=== PATIENT | male | born 1990 | race African-American/Black ===

== ENCOUNTER 2018-01-21 14:25 | Emergency (ER) | payer SELFPAY ==
--- NOTE | 2018-01-21 15:50 | ER Document Report ---
ED Medical Screen (RME) - General Chief Complaint: Abdominal Pain Stated Complaint: VOMITING,DIARRHEA Time Seen by Provider: 01/21/18 15:22 Mode of Arrival: Ambulatory Information source: Patient TRAVEL OUTSIDE OF THE [place] IN LAST 30 DAYS: No - HPI Notes: RAPID MEDICAL EVALUATION DISCLOSURE I have seen this patient as part of a Rapid Medical Evaluation and, if applicable, placed any initially appropriate orders. The patient will be seen and fully evaluated, including a full history and physical exam, by a provider ( in Main ED or Fast Track) when a room becomes available. 01/21/18 15:49 Patient states he has abdominal pain that is diffuse in nature. He states he has had nausea vomiting and diarrhea for the past few weeks with associated 40 pound weight loss in the last 3 months. He has a history of PTSD and bipolar disorder and is supposed to be on medications including trazodone but states he has not been taking them "for a while". Patient has been here in the past however he is registered under a different birthdate today and so his past medical history is in a different chart. Registration states are unable to emergency charts at this time because patient does not have a valid ID with him. - Related Data Allergies/Adverse Reactions: No Known Allergies Allergy (Unverified 01/21/18 14:26) Past Medical History - Social History Frequency of alcohol use: None Drug Abuse: Marijuana - Past Medical History Cardiac Medical History: Reports: Hx Hypertension - htn Renal/ Medical History: Denies: Hx Peritoneal Dialysis Past Surgical History: Reports: Hx Orthopedic Surgery - spinal surgery Physical Exam - Vital signs Vitals: Temp Pulse Resp BP Pulse Ox 98.4 F 84 16 140/81 H 97 01/21/18 14:31 01/21/18 14:31 01/21/18 14:31 01/21/18 14:31 01/21/18 14:31 Course - Vital Signs Vital signs: Temp Pulse Resp BP Pulse Ox 98.4 F 84 16 140/81 H 97 01/21/18 14:31 01/21/18 14:31 01/21/18 14:31 01/21/18 14:31 01/21/18 14:31
[2018-01-21] MEDS ORDERED: ONDANSETRON HCL INJ/PF 4 MG/2 ML SDV IV ONE (16:25)
[2018-01-21] MEDS ORDERED: KETOROLAC TROMETHAMINE INJ/PF 30 MG/1 ML SDV IV ONE (16:25)
[2018-01-21 16:29] LABS: ABSOLUTE EOSINOPHILS # (AUTO) 0.1 10^3/uL (0.0-0.6); ABSOLUTE LYMPHOCYTES (AUTO) 2.6 10^3/uL (0.5-4.7); ABSOLUTE MONOCYTES (AUTO) 0.8 10^3/uL (0.1-1.4); ABSOLUTE NEUT (AUTO) 5.3 10^3/uL (1.7-8.2); BASOPHILS % (AUTO) 0.3 % (0-2); HEMATOCRIT 42.9 % (37.9-51.0); HEMOGLOBIN 14.9 g/dL (13.5-17.0); LYMPHOCYTES % (AUTO) 29.4 % (13-45); MEAN CORPUSCULAR HEMOGLOBIN 29.9 pg (27.0-33.4); MEAN CORPUSCULAR HGB CONC 34.8 g/dL (32.0-36.0); MEAN CORPUSCULAR VOLUME 86 fl (80-97); MONOCYTES % (AUTO) 9.2 % (3-13); PLATELET COUNT 220 10^3/uL (150-450); RED BLOOD COUNT 4.99 10^6/uL (4.35-5.55); RED CELL DISTRIBUTION WIDTH 14.6 % (11.5-14.0); SEGMENTED NEUTROPHILS % (AUTO) 60.1 % (42-78); TOTAL CELLS COUNTED % (AUTO) 100 %; WHITE BLOOD COUNT 8.8 10^3/uL (4.0-10.5)
--- NOTE | 2018-01-21 16:30 | ER Document Report ---
ED General - General Chief Complaint: Abdominal Pain Stated Complaint: VOMITING,DIARRHEA Time Seen by Provider: 01/21/18 15:22 Mode of Arrival: Ambulatory TRAVEL OUTSIDE OF THE [place] IN LAST 30 DAYS: No - HPI Notes: Patient is a 27-year-old male with a history of bipolar and PTSD, currently unmedicated, who presents to the ED complaining of right side greater than left side abdominal pain, nausea, vomiting, diarrhea 6 weeks. Patient states that symptoms occur daily and his pain is always there. He is still able to eat and drink, but food will make his symptoms worse. He is urinating normally. He has not noticed any hematochezia or melena. The pain does not radiate. Nothing has seemed to improve his pain. He has not been seen for this issue in the past. Denies any drug allergies, smoking, IV drug use. Denies any antibiotics prior to the start of symptoms. No other recent travel. Denies any headache, fever, neck pain, URI, sore throat, chest pain, palpitations, syncope, cough, shortness of breath, wheeze, dyspnea, urinary retention, dysuria , hematuria, back pain, loss of control of bowel or bladder, numbness/tingling, muscle paralysis/weakness, or rash. - Related Data Allergies/Adverse Reactions: No Known Allergies Allergy (Unverified 01/21/18 14:26) Past Medical History - General Information source: Patient - Social History Smoking Status: Unknown if Ever Smoked Frequency of alcohol use: None Drug Abuse: Marijuana Family History: Reviewed & Not Pertinent Patient has suicidal ideation: No Patient has homicidal ideation: No - Past Medical History Cardiac Medical History: Reports: Hx Hypertension - htn Renal/ Medical History: Denies: Hx Peritoneal Dialysis Past Surgical History: Reports: Hx Orthopedic Surgery - spinal surgery Review of Systems - Review of Systems -: Yes All other systems reviewed and negative Physical Exam - Vital signs Vitals: Temp Pulse Resp BP Pulse Ox 98.4 F 84 16 140/81 H 97 01/21/18 14:31 01/21/18 14:31 01/21/18 14:31 01/21/18 14:31 01/21/18 14:31 - Notes Notes: PHYSICAL EXAMINATION: GENERAL: Well-appearing, well-nourished and in no acute distress. HEAD: Atraumatic, normocephalic. EYES: Pupils equal round and reactive to light, extraocular movements intact, sclera anicteric, conjunctiva are normal. ENT: Nares patent and without discharge. oropharynx clear without exudates. No tonsilar hypertrophy or erythema. Moist mucous membranes. NECK: Normal range of motion, supple without lymphadenopathy LUNGS: Breath sounds clear to auscultation bilaterally and equal. No wheezes rales or rhonchi. HEART: Regular rate and rhythm without murmurs, rubs, gallops. ABDOMEN: Soft, nondistended abdomen. No guarding, no rebound. No masses appreciated. Normal bowel sounds present. No CVA tenderness bilaterally. + tenderness to the RLQ>LLQ to palp. + mild tenderness to the epigastrum. pierre negative. Musculoskeletal: FROM to passive/active. Strength 5+/5. Extremities: No cyanosis, clubbing, or edema b/l. Peripheral pulses 2+. Capillary refill less than 3 seconds. NEUROLOGICAL: Normal speech, normal gait. Normal sensory, motor exams PSYCH: Normal mood, normal affect. SKIN: Warm, Dry, normal turgor, no rashes or lesions noted. Course - Re-evaluation Re-evalutation: 01/21/18 18:37 Patient is an afebrile, well-hydrated, 27-year-old male who presents to the ED with n/v/d & lower abdominal pain unspecified. Vitals are acceptable. PE is otherwise unremarkable. Patient has no significant tachycardia, tachypnea, or hypoxia. He is able to tolerate p.o. at this time. CBC, CMP, lipase, urinalysis were unremarkable for any acute pathology. Stool testing still pending. CT scan of the abdomen/pelvis was unremarkable for any acute pathology. Low suspicion/risk for acute appendicitis, bowel obstruction, acute cholecystitis, perforated diverticulitis, incarcerated hernia, pancreatitis, perforated ulcer, peritonitis, sepsis, or other systemic emergent condition at this time. Patient is aware that his condition can change from initial presentation and he needs to monitor symptoms closely and seek medical attention if any acute changes. I will send him home with Mark. Conservative measures otherwise for symptoms. Recheck with PCM in 2-3 days. Consider consult with a merchandise deliverer. Return to the ED with any worsening /concerning symptoms otherwise as reviewed in discharge. Patient is in agreement. - Vital Signs Vital signs: Temp Pulse Resp BP Pulse Ox 98.4 F 84 16 140/81 H 97 01/21/18 14:31 01/21/18 14:31 01/21/18 14:31 01/21/18 14:31 01/21/18 14:31 - Laboratory Result Diagrams: 01/21/18 16:10 01/21/18 16:10 Laboratory results interpreted by me: 01/21/18 01/21/18 16:10 16:10 RDW 14.6 H Sodium 146.6 H Calcium 10.3 H Discharge - Discharge Clinical Impression: Nausea vomiting and diarrhea Condition: Stable Disposition: HOME, SELF-CARE Instructions: Abdominal Pain ([facility]), Prescribed Antidiarrhea Medications ([facility]), Antinausea Medication ([facility]) Additional Instructions: Maintain adequate fluid and food intake Otero diet (B.R.A.T.) Bananas, rice, apples, toast, etc Zofran as needed tylenol if needed Monitor for any worsening symptoms Make sure you are staying hydrated enough to urinate and have normal BM's Recheck with your PCM in 2-3 days Schedule a consult with Gastroenterology as you may need an endoscopy/ colonoscopy performed Return to the ED with any worsening symptoms and/or development of fever, headache, chest pain, palpitations, syncope, shortness of breath, trouble breathing, abdominal pain, n/v/d, blood in stool/urine, weakness, or other worsening symptoms that are concerning to you. Prescriptions: Loperamide HCl [Imodium 2 mg Capsule] 2 mg PO PRN PRN #21 cap PRN Reason: Ondansetron [Zofran Odt 4 mg Tablet] 1 - 2 tab PO Q4H PRN #15 tab.rapdis PRN Reason: For Nausea/Vomiting Forms: Elevated Blood Pressure Referrals: RADHIKA FOWLER MD [ACTIVE STAFF] - Follow up as needed KIKA MIRANDA MD [ACTIVE STAFF] - Follow up as needed
[2018-01-21 16:55] LABS: ALANINE AMINOTRANSFERASE 22 U/L (21-72); ALBUMIN 4.9 g/dL (3.5-5.0); ALKALINE PHOSPHATASE 66 U/L (38-126); ANION GAP 13 (5-19); ASPARTATE AMINO TRANSFERASE 23 U/L (17-59); BILIRUBIN,DIRECT 0.3 mg/dL (0.0-0.4); BILIRUBIN,TOTAL 0.5 mg/dL (0.2-1.3); BLOOD UREA NITROGEN 19 mg/dL (7-20); CALCIUM 10.3 mg/dL (8.4-10.2); CARBON DIOXIDE 29 mmol/L (22-30); CHLORIDE 105 mmol/L (98-107); GLUCOSE 78 mg/dL (75-110); SODIUM 146.6 mmol/L (137-145); TOTAL PROTEIN 8.1 g/dL (6.3-8.2)
--- NOTE | 2018-01-21 18:19 | RADIOLOGY REPORT (SQ) ---
EXAM DESCRIPTION: CT ABD/PELVIS WITH IV ONLY COMPLETED DATE/TIME: 01/21/2018 5:45 pm REASON FOR STUDY: abd pain COMPARISON: None. TECHNIQUE: CT scan of the abdomen and pelvis performed using helical scanning technique with dynamic intravenous contrast injection. No oral contrast. Images reviewed with lung, soft tissue, and bone windows. Reconstructed coronal and sagittal MPR images reviewed. Delayed images for evaluation of the urinary system also acquired. All images stored on PACS. All CT scanners at this facility use dose modulation, iterative reconstruction, and/or weight based d osing when appropriate to reduce radiation dose to as low as reasonably achievable (ALARA). [facility]: Dose Right [facility]: CareDose [facility]: Dose Right [facility]: Teradose 4D [facility]: Afrimarket CONTRAST TYPE AND DOSE: 94 cc Isovue 370- low osmolar. RENAL FUNCTION: None required. The patient is less than 50 years old. RADIATION DOSE: . LIMITATIONS: None. FINDINGS: LOWER CHEST: No significant findings. No nodules or infiltrates. LIVER: Normal size. No masses. No dilated ducts. SPLEEN: Normal size. No focal lesions. PANCREAS: No masses. No significant calcifications. No adjacent inflammation or peripancreatic fluid collections. Pancreatic duct not dilated. GALLBLADDER: No identified stones by CT criteria. No inflammatory changes to suggest cholecystitis. ADRENAL GLANDS: No significant masses or asymmetry. RIGHT KIDNEY AND URETER: No solid masses. No significant calcifications. No hydronephrosis or hyd roureter. LEFT KIDNEY AND URETER: No solid masses. No significant calcifications. No hydronephrosis or hydr oureter. AORTA AND VESSELS: No aneurysm. No dissection. Renal arteries, SMA, celiac without stenosis. RETROPERITONEUM: No retroperitoneal adenopathy, hemorrhage or masses. BOWEL AND PERITONEAL CAVITY: No masses or inflammatory changes. No free fluid or peritoneal masses. APPENDIX: Not identified. PELVIS: No mass. No free fluid. Normal bladder. ABDOMINAL WALL: No masses. No hernias. BONES: No significant or acute findings. OTHER: No other significant finding. IMPRESSION: NO SIGNIFICANT OR ACUTE FINDING IN THE ABDOMEN OR PELVIS ON CT SCAN WITH IV CONTRAST. TECHNICAL DOCUMENTATION: JOB ID: [id number] Quality ID # [id number]: Final reports with documentation of one or more dose reduction techniques (e.g., Au tomated exposure control, adjustment of the mA and/or kV according to patient size, use of iterative reconstruction technique) 2010 [employer]- All Rights Reserved Reading location - IP/workstation name: [email or web address]
[2018-01-21 18:44] LABS: APPEARANCE,URINE CLEAR; BILIRUBIN,URINE NEGATIVE (NEGATIVE); COLOR,URINE YELLOW; GLUCOSE, URINE NEGATIVE (NEGATIVE); KETONES,URINE NEGATIVE (NEGATIVE); LEUKOCYTE ESTERASE,URINE NEGATIVE (NEGATIVE); NITRITE,URINE NEGATIVE (NEGATIVE); PROTEIN,URINE NEGATIVE (NEGATIVE); URINE SPECIFIC GRAVITY 1.024; UROBILINOGEN,URINE NEGATIVE mg/dL (<2.0)
[2018-01-21 19:13] VITALS: BP 152/89
== END 2018-01-21 19:12 | disposition home or self-care (01) ==
LOC: ER 14:25
DX: R11.2 Nausea with vomiting, unspecified (principal); R19.7 Diarrhea, unspecified; R10.30 Lower abdominal pain, unspecified; R10.816 Epigastric abdominal tenderness; R10.813 Right lower quadrant abdominal tenderness; R10.814 Left lower quadrant abdominal tenderness; F12.10 Cannabis abuse, uncomplicated; I10 Essential (primary) hypertension
CPT/HCPCS: 99284; 96374; 96375; 36415; 83690; 85025; 80053; 81001; 74177; J1885; J2405

== ENCOUNTER 2018-02-15 17:25 | Emergency (ER) | payer SELFPAY ==
[2018-02-15] MEDS ORDERED: ONDANSETRON 4 MG TAB.RAPDIS PO ONE (17:56)
[2018-02-15] MEDS ORDERED: ACETAMINOPHEN 325 MG TABLET PO ONE (17:56)
--- NOTE | 2018-02-15 17:59 | ER Document Report ---
ED Medical Screen (RME) - General Chief Complaint: Abdominal Pain Stated Complaint: ABDOMINAL PAIN Time Seen by Provider: 02/15/18 17:51 Notes: RAPID MEDICAL EVALUATION DISCLOSURE I have seen this patient as part of a Rapid Medical Evaluation and, if applicable, placed any initially appropriate orders. The patient will be seen and fully evaluated, including a full history and physical exam, by a provider ( in Main ED or Fast Track) when a room becomes available. 27-year-old male PMH C. difficile recently finished antibiotics for same here with complaints of continued lower abdominal pain nausea vomiting and diarrhea. He states that he was diagnosed at his last ED visit and prescribed antibiotics which he took 3 times daily but does not remember the name of it. He denies using any antibiotics prior to the onset of his symptoms the first time. EXAM Mild lower quadrant TTP No peritoneal signs TRAVEL OUTSIDE OF THE [place] IN LAST 30 DAYS: No - Related Data Allergies/Adverse Reactions: No Known Allergies Allergy (Verified 02/15/18 17:55) Past Medical History - Social History Frequency of alcohol use: None Drug Abuse: Marijuana - Past Medical History Cardiac Medical History: Reports: Hx Hypertension - htn Renal/ Medical History: Denies: Hx Peritoneal Dialysis Past Surgical History: Reports: Hx Orthopedic Surgery - spinal surgery Physical Exam - Vital signs Vitals: Temp Pulse Resp BP Pulse Ox 98.8 F 94 18 126/86 H 95 02/15/18 17:36 02/15/18 17:36 02/15/18 17:36 02/15/18 17:36 02/15/18 17:36 Course - Vital Signs Vital signs: Temp Pulse Resp BP Pulse Ox 98.8 F 94 18 126/86 H 95 02/15/18 17:36 02/15/18 17:36 02/15/18 17:36 02/15/18 17:36 02/15/18 17:36 Doctor's Discharge - Discharge Referrals: JOHN PARNELL PA-C [Primary Care Provider] - Follow up as needed
[2018-02-15 18:26] LABS: ABSOLUTE EOSINOPHILS # (AUTO) 0.1 10^3/uL (0.0-0.6); ABSOLUTE LYMPHOCYTES (AUTO) 2.8 10^3/uL (0.5-4.7); ABSOLUTE MONOCYTES (AUTO) 0.7 10^3/uL (0.1-1.4); ABSOLUTE NEUT (AUTO) 4.5 10^3/uL (1.7-8.2); BASOPHILS % (AUTO) 0.4 % (0-2); EOSINOPHILS % (AUTO) 1.1 % (0-6); HEMATOCRIT 44.3 % (37.9-51.0); HEMOGLOBIN 15.8 g/dL (13.5-17.0); LYMPHOCYTES % (AUTO) 34.2 % (13-45); MEAN CORPUSCULAR HEMOGLOBIN 30.4 pg (27.0-33.4); MEAN CORPUSCULAR HGB CONC 35.6 g/dL (32.0-36.0); MEAN CORPUSCULAR VOLUME 85 fl (80-97); MONOCYTES % (AUTO) 8.8 % (3-13); PLATELET COUNT 256 10^3/uL (150-450); RED BLOOD COUNT 5.19 10^6/uL (4.35-5.55); RED CELL DISTRIBUTION WIDTH 14.4 % (11.5-14.0); SEGMENTED NEUTROPHILS % (AUTO) 55.5 % (42-78); TOTAL CELLS COUNTED % (AUTO) 100 %; WHITE BLOOD COUNT 8.1 10^3/uL (4.0-10.5)
[2018-02-15 18:33] LABS: APPEARANCE,URINE CLEAR; BILIRUBIN,URINE NEGATIVE (NEGATIVE); COLOR,URINE YELLOW; GLUCOSE, URINE NEGATIVE (NEGATIVE); KETONES,URINE NEGATIVE (NEGATIVE); LEUKOCYTE ESTERASE,URINE NEGATIVE (NEGATIVE); NITRITE,URINE NEGATIVE (NEGATIVE); PROTEIN,URINE NEGATIVE (NEGATIVE); URINE SPECIFIC GRAVITY 1.026
[2018-02-15 18:43] LABS: ALANINE AMINOTRANSFERASE 29 U/L (21-72); ALBUMIN 4.9 g/dL (3.5-5.0); ALKALINE PHOSPHATASE 65 U/L (38-126); ANION GAP 13 (5-19); ASPARTATE AMINO TRANSFERASE 25 U/L (17-59); BILIRUBIN,DIRECT 0.2 mg/dL (0.0-0.4); BILIRUBIN,TOTAL 0.5 mg/dL (0.2-1.3); BLOOD UREA NITROGEN 18 mg/dL (7-20); CALCIUM 10.2 mg/dL (8.4-10.2); CARBON DIOXIDE 30 mmol/L (22-30); CHLORIDE 103 mmol/L (98-107); GLUCOSE 90 mg/dL (75-110); LIPASE 54.7 U/L (23-300); POTASSIUM 4.1 mmol/L (3.6-5.0); SODIUM 146.4 mmol/L (137-145); TOTAL PROTEIN 8.3 g/dL (6.3-8.2)
--- NOTE | 2018-02-15 18:45 | ER Document Report ---
ED General <MICHELE CORRAL - Last Filed: 02/15/18 21:00> - General Mode of Arrival: Ambulatory Information source: Patient TRAVEL OUTSIDE OF THE [place] IN LAST 30 DAYS: No <CLIFFORD RAPHAEL - Last Filed: 02/15/18 21:06> - General Chief Complaint: Abdominal Pain Stated Complaint: ABDOMINAL PAIN Time Seen by Provider: 02/15/18 17:51 Notes: This 27-year-old male patient past medical history of bipolar disorder, social anxiety disorder, PTSD, depression. Complains of abdominal pain with diarrhea. He was seen here on 01/21/2018 with nausea, vomiting, diarrhea for 6 weeks. He brought a specimen back for outpatient testing 8 days later on 01/29/2018 which tested positive for C. difficile toxins. According the nursing notes, he had a prescription for Metronidazole 500mg TID 7 days provided. I did call the pharmacy at [facility] [address] and confirmed that the patient did product picker the prescription. Patient states that he has not improved at all since taking the Flagyl for 7 days. (MICHELE CORRAL) 27 y.o male presents to the ED with abd pain, diarrhea, nausea and vomiting. Pt was seen here in January for C.diff for which he was given Metronidazole for 7 days. He denies any relief from the antibiotics he was given for Cdiff. Pt also notes that he a hemoird of onset since last time he was seen here for C.diff. Girlfriend at bedside reports that he hasn't eaten much because he vomits whenever he eats. Pt has a PSHx of lumbar spine effusion. Pt has of PTSD, depression, social anxiety disorder and bipolar disorder for which he takes Trazadone and a few other medications that of which he cannot remember the names. He states that he sees [facility] for psychiatry. (CLIFFORD RAPHAEL) - Related Data Allergies/Adverse Reactions: No Known Allergies Allergy (Verified 02/15/18 17:55) Past Medical History - General Information source: Patient - Social History Smoking Status: Current Every Day Smoker Chew tobacco use (# tins/day): No Smoking Education Provided: Yes Frequency of alcohol use: None Drug Abuse: None Occupation: [employer] Family History: Reviewed & Not Pertinent Patient has suicidal ideation: No Patient has homicidal ideation: No - Past Medical History Cardiac Medical History: Reports: Hx Hypertension - htn Renal/ Medical History: Denies: Hx Peritoneal Dialysis Past Surgical History: Reports: Hx Orthopedic Surgery - spinal surgery <CLIFFORD RAPHAEL - Last Filed: 02/15/18 21:06> Review of Systems - Review of Systems Constitutional: No symptoms reported EENT: No symptoms reported Cardiovascular: No symptoms reported Respiratory: No symptoms reported Gastrointestinal: See HPI, Abdominal pain, Diarrhea, Nausea, Vomiting, Other - hemroid Genitourinary: No symptoms reported Male Genitourinary: No symptoms reported Musculoskeletal: No symptoms reported Skin: No symptoms reported Hematologic/Lymphatic: No symptoms reported Neurological/Psychological: No symptoms reported -: Yes All other systems reviewed and negative <CLIFFORD RAPHAEL - Last Filed: 02/15/18 21:06> Physical Exam - Rectal Hemorrhoids: External - There is a small external hemorrhoid on the right side that appears to possibly be coming thrombosed. The patient will not allow it to be touched or examined. He was advised to put Vaseline on his finger and put gentle pressure on the hemorrhoid over prolonged period of time to reduce it himself when he gets home. <MICHELE CORRAL - Last Filed: 02/15/18 21:00> <CLIFFORD RAPHAEL - Last Filed: 02/15/18 21:06> - Vital signs Vitals: Temp Pulse Resp BP Pulse Ox 98.8 F 94 18 126/86 H 95 02/15/18 17:36 02/15/18 17:36 02/15/18 17:36 02/15/18 17:36 02/15/18 17:36 - Notes Notes: Physical Exam: General: Alert, appears well. HEENT: Normocephalic. Atraumatic. PERRL. Extraocular movements intact. Oropharynx clear. Neck: Supple. Non-tender. Respiratory: No respiratory distress. Clear and equal breath sounds bilaterally. Cardiovascular: Regular rate and rhythm. Abdominal: Soft. Diffusely mildly tender. No distension. Normal Bowel Sounds. Back: Non-tender. No deformity or step off. Extremities: Moves all four extremities. Upper extremities: Normal inspection. Normal ROM. Lower extremities: Normal inspection. No edema. Normal ROM. Neurological: Normal cognition. AAOx3. Normal speech. Psychological: Normal affect. Normal Mood. Skin: Warm. Dry. Normal color. (CLIFFORD RAPHAEL) Course - Laboratory Result Diagrams: 02/15/18 18:07 02/15/18 18:07 <MICHELE CORRAL - Last Filed: 02/15/18 21:00> - Laboratory Result Diagrams: 02/15/18 18:07 02/15/18 18:07 <CLIFFORD RAPHAEL - Last Filed: 02/15/18 21:06> - Re-evaluation Re-evalutation: 02/15/18 20:55 The patient has been here for about 4 hours and has not had any diarrhea. He and his girlfriend were asking for pain medication because his pain and cramps gets so severe, which has not happened since he has been here. During the initial H&P, the patient reported that he had had pins placed in his lumbar spine. A CT scan done on 01/21/2018 shows no hardware in his spine. He was put on a 7 day course of Flagyl, claims it did not improve his symptoms however his symptoms do not seem to be too severe based on the diarrhea and over 4 hours. Current recommendations are a 10 day course of Flagyl, so he will be given a prescription for that. I did review with him the other treatment options and how expensive they were and he stated there is no way he would be able to get vancomycin or the other newer medication. We will try a 10 day course of metronidazole. He will be encouraged to obtain a stool specimen to retest for C. difficile. He is told he may try Pepto-Bismol for diarrhea and cramps, but not to use any other antidiarrheal medication. (MICHELE CORRAL) - Vital Signs Vital signs: Temp Pulse Resp BP Pulse Ox 98.8 F 94 18 126/86 H 95 02/15/18 17:36 02/15/18 17:36 02/15/18 17:36 02/15/18 17:36 02/15/18 17:36 - Laboratory Laboratory results interpreted by me: 02/15/18 02/15/18 02/15/18 18:07 18:07 18:07 RDW 14.4 H Sodium 146.4 H Creatinine 1.38 H Total Protein 8.3 H Urine Urobilinogen 4.0 H Discharge <MICHELE CORRAL - Last Filed: 02/15/18 21:00> <CLIFFORD RAPHAEL - Last Filed: 02/15/18 21:06> - Discharge Clinical Impression: External hemorrhoid, thrombosed, History of Clostridium difficile infection Diarrhea Qualifiers: Diarrhea type: presumed infectious Qualified Code(s): R19.7 - Diarrhea, unspecified Condition: Stable Disposition: HOME, SELF-CARE Additional Instructions: Diarrhea: Diarrhea means frequent, watery stools. There are many causes. Any problem that keeps the intestinal tract from absorbing water from the stool can lead to diarrhea. A sudden new diarrhea problem is usually caused by a virus, food sensitivity, toxic bacteria, or drugs. In this case, we expect the problem to go away soon. Testing is done only if you seem seriously ill from the diarrhea. If you have chronic diarrhea, or diarrhea that keeps coming back, we need to find out why. Chronic diarrhea can be due to inflammation of the bowels such as Crohn's disease or ulcerative colitis, food sensitivity such as intolerance to lactose or wheat protein, irritable bowel syndrome, and other problems. If your diarrhea is a significant problem but it's not clear why you have it, we' ll refer you to a specialist for further testing. During an episode of diarrhea, drink small amounts (two to six ounces) of clear liquids (soft drinks, sport drinks, herb teas, broth, etc). Take fluids frequently to prevent dehydration. It's usually not a problem to take mild anti- diarrhea medication such as Kaopectate or Pepto-Bismol. As the diarrhea eases, advance to small amounts of bland food (mashed potato, toast) for 24 hours. Call the physician if blood appears in your vomit or stool, if vomiting lasts longer than 24 hours, if the abdominal pain worsens or becomes localized to one area, if you develop high fever, or if you become lightheaded and weak. Your diarrhea may be due to persistent C. difficile infection. You will be prescribed a 10 day course of metronidazole. Be sure to drink plenty of fluids. Try to submit a stool specimen for culture and C. difficile toxins to the laboratory. Follow-up with a local medical doctor if not improving. RETURN TO THE EMERGENCY ROOM IF ANY NEW OR WORSENING SYMPTOMS. Prescriptions: Metronidazole [Flagyl 500 mg Tablet] 500 mg PO TID #30 tablet Forms: Follow-Up Laboratory Testing, Return to Work Scribe Attestation: 02/15/18 19:08 I personally performed the services described in the documentation, reviewed and edited the documentation which was dictated to the scribe in my presence, and it accurately records my words and actions. (MICHELE CORRAL) Scribe Documentation - Scribe Written by Samreen:: Samreen Hilario 02/15/18 [id number] acting as scribe for :: Alissa <CLIFFORD RAPHAEL - Last Filed: 02/15/18 21:06>
[2018-02-15] MEDS ORDERED: METRONIDAZOLE 500 MG TABLET PO ONE (21:03)
[2018-02-15 21:17] VITALS: BP 127/82
== END 2018-02-15 21:16 | disposition home or self-care (01) ==
LOC: ER 17:25
DX: R19.7 Diarrhea, unspecified (principal); K64.5 Perianal venous thrombosis; R10.9 Unspecified abdominal pain; R10.817 Generalized abdominal tenderness; R11.2 Nausea with vomiting, unspecified; F17.200 Nicotine dependence, unspecified, uncomplicated; I10 Essential (primary) hypertension; F43.10 Post-traumatic stress disorder, unspecified; F41.8 Other specified anxiety disorders; F31.9 Bipolar disorder, unspecified; Z79.899 Other long term (current) drug therapy; Z86.19 Personal history of other infectious and parasitic diseases
CPT/HCPCS: 99284; 36415; 83690; 85025; 80053; 81001; S0119

== ENCOUNTER 2018-05-09 17:04 | Emergency (ER) | payer OTHER ==
[2018-05-09] MEDS ORDERED: KETOROLAC TROMETHAMINE INJ/PF 30 MG/1 ML SDV IV ONE (17:43)
[2018-05-09] MEDS ORDERED: MORPHINE SULFATE 10 MG/ML INJ IV ONE (17:43)
[2018-05-09] MEDS ORDERED: DIPH/PERTUSS(ACELL)/TETANUS VAC/PF 0.5 ML SYR (>=10YO) IM ONE (17:46)
--- NOTE | 2018-05-09 17:50 | ER Document Report ---
ED Skin Rash/Insect Bite/Abscs - General Chief Complaint: Insect Bite Stated Complaint: POSSIBLE SPIDER BITE Time Seen by Provider: 05/09/18 17:43 Information source: Patient Notes: 30-year-old male who states he was laying on the couch when he felt a bite to his left posterior triceps region. Patient states he killed and saw the spider and brought it here in the emergency department. Patient states some pain with some hives to the left arm. He denies any cough, nausea, vomiting, chest pain, or any other acute problems. Patient is unsure of his last tetanus shot. TRAVEL OUTSIDE OF THE [place] IN LAST 30 DAYS: No - HPI Patient complains to provider of: Skin rash/lesion Onset: Just prior to arrival Onset/Duration: Sudden Quality of pain: Achy Severity: Mild Pain Level: 1 Skin Character: Other - See above Quality of rash: Itchy, Painful Identify cause: Yes Exacerbated by: Denies Relieved by: Denies Similar symptoms previously: No Recently seen / treated by doctor: No - Related Data Allergies/Adverse Reactions: No Known Allergies Allergy (Verified 02/15/18 17:55) Past Medical History - General Information source: Patient - Social History Smoking Status: Unknown if Ever Smoked Cigarette use (# per day): No Chew tobacco use (# tins/day): No Smoking Education Provided: No Family History: Reviewed & Not Pertinent - Past Medical History Cardiac Medical History: Reports: Hx Hypertension - htn Renal/ Medical History: Denies: Hx Peritoneal Dialysis Psychiatric Medical History: Reports: Hx Bipolar Disorder Past Surgical History: Reports: Hx Orthopedic Surgery - spinal surgery Review of Systems - Review of Systems Constitutional: denies: Fever Cardiovascular: denies: Chest pain, Palpitations Respiratory: denies: Short of breath Gastrointestinal: denies: Vomiting Skin: denies: Rash -: Yes All other systems reviewed and negative Physical Exam - Vital signs Vitals: Temp Pulse Resp BP Pulse Ox 98.1 F 79 18 143/72 H 100 05/09/18 17:19 05/09/18 17:19 05/09/18 17:19 05/09/18 17:19 05/09/18 17:19 Interpretation: Normal Notes: Reviewed vital signs and nursing note as charted by RN. CONSTITUTIONAL: Alert and oriented and responds appropriately to questions. Well -appearing; well-nourished HEAD: Normocephalic; atraumatic CARD: Regular rate and rhythm; no murmurs RESP: Normal chest excursion without splinting or tachypnea; breath sounds clear and equal bilaterally ABD/GI: Normal bowel sounds; non-distended; soft, non-tender BACK: The back appears normal and is non-tender to palpation EXT: Normal ROM in all joints; patient has a small area of redness and mild swelling without fluctuance or induration to the left posterior tricep region SKIN: See above NEURO: Moves all extremities equally; Motor and sensory function intact PSYCH: The patient's mood and manner are appropriate. Grooming and personal hygiene are appropriate. Course - Re-evaluation Re-evalutation: 05/09/18 17:51 Given the history and physical examination, I will update the patient's tetanus shot, provide morphine and Toradol, and reassess. The Poison Control Center states to watch the patient for around 2 hours after the incident. We will do this. If the patient remains only slightly symptomatic, patient will be discharged home with strict return precautions. 05/09/18 18:37 No change in the size of the lesion. Patient's pain is controlled. - Vital Signs Vital signs: Temp Pulse Resp BP Pulse Ox 98.1 F 79 18 143/72 H 100 05/09/18 17:19 05/09/18 17:19 05/09/18 17:19 05/09/18 17:19 05/09/18 17:19 Discharge - Discharge Clinical Impression: Black spider bite Qualifiers: Encounter type: initial encounter Injury intent: undetermined intent Qualified Code(s): T63.314A - Toxic effect of venom of black spider, undetermined, initial encounter Condition: Good Disposition: HOME, SELF-CARE Additional Instructions: Come back immediately for any increased pain, swelling, redness, muscle aches, abdominal pain, vomiting, chest pain, shortness of breath, or any other acute problems. Please continue to take Motrin 600 mg every 6 hours as needed for pain. Please follow-up with the primary care physician. Prescriptions: Ibuprofen [Motrin 600 Mg Tablet] 600 mg PO Q6H PRN #24 tablet PRN Reason: for pain
[2018-05-09] MEDS ORDERED: HYDROCODONE/ACETAMINOPHEN 5-325 MG TABLET PO ONE (19:04)
[2018-05-09 19:39] VITALS: BP 136/79
== END 2018-05-09 19:39 | disposition home or self-care (01) ==
LOC: ER 17:04
DX: T63.311A Toxic effect of venom of black widow spider, accidental (unintentional), initial encounter (principal); L50.9 Urticaria, unspecified; Y92.009 Unspecified place in unspecified non-institutional (private) residence as the place of occurrence of the external cause; Z23 Encounter for immunization
CPT/HCPCS: 99282; 90471; 96374; 96375; 90715; J1885; J2270

== ENCOUNTER 2018-05-10 13:56 | Emergency (ER) | payer OTHER ==
[2018-05-10] MEDS ORDERED: ONDANSETRON 4 MG TAB.RAPDIS PO ONE (14:26)
[2018-05-10] MEDS ORDERED: OXYCODONE HCL IR 5 MG TABLET PO ONE (14:26)
--- NOTE | 2018-05-10 14:30 | ER Document Report ---
ED Medical Screen (RME) - General Chief Complaint: Pain All Over Stated Complaint: BODY PAIN Time Seen by Provider: 05/10/18 14:09 Notes: RAPID MEDICAL EVALUATION DISCLOSURE I have seen this patient as part of a Rapid Medical Evaluation and, if applicable, placed any initially appropriate orders. The patient will be seen and fully evaluated, including a full history and physical exam, by a provider ( in Main ED or Fast Track) when a room becomes available. 28-year-old male seen here yesterday for presumed black insect bite here again with complaints of entire body pain, nausea, headache, decreased urination , generalized weakness, and overall not feeling well. He was given opioids and tetanus was updated at previous visit. He was prescribed ibuprofen. He feels as though the symptoms have been worsening and believes it may be due to the spider bite. EXAM CTAB RRR TRAVEL OUTSIDE OF THE [place] IN LAST 30 DAYS: No - Related Data Allergies/Adverse Reactions: No Known Allergies Allergy (Verified 05/10/18 13:57) Past Medical History - Social History Chew tobacco use (# tins/day): No Frequency of alcohol use: None Drug Abuse: Marijuana - Past Medical History Cardiac Medical History: Reports: Hx Hypertension - htn Renal/ Medical History: Denies: Hx Peritoneal Dialysis Psychiatric Medical History: Reports: Hx Bipolar Disorder Past Surgical History: Reports: Hx Orthopedic Surgery - spinal surgery Physical Exam - Vital signs Vitals: Temp Pulse Resp BP Pulse Ox 97.5 F 61 18 152/86 H 100 05/10/18 14:05 05/10/18 14:05 05/10/18 14:05 05/10/18 14:05 05/10/18 14:05 Course - Vital Signs Vital signs: Temp Pulse Resp BP Pulse Ox 97.5 F 61 18 152/86 H 100 05/10/18 14:05 05/10/18 14:05 05/10/18 14:05 05/10/18 14:05 05/10/18 14:05
[2018-05-10 15:45] LABS: ABSOLUTE EOSINOPHILS # (AUTO) 0.1 10^3/uL (0.0-0.6); ABSOLUTE LYMPHOCYTES (AUTO) 2.6 10^3/uL (0.5-4.7); ABSOLUTE MONOCYTES (AUTO) 0.6 10^3/uL (0.1-1.4); ABSOLUTE NEUT (AUTO) 3.9 10^3/uL (1.7-8.2); BASOPHILS % (AUTO) 0.4 % (0-2); EOSINOPHILS % (AUTO) 1.1 % (0-6); HEMATOCRIT 43.3 % (37.9-51.0); HEMOGLOBIN 15.1 g/dL (13.5-17.0); MEAN CORPUSCULAR HEMOGLOBIN 30.3 pg (27.0-33.4); MEAN CORPUSCULAR HGB CONC 34.9 g/dL (32.0-36.0); MEAN CORPUSCULAR VOLUME 87 fl (80-97); MONOCYTES % (AUTO) 8.2 % (3-13); PLATELET COUNT 285 10^3/uL (150-450); RED CELL DISTRIBUTION WIDTH 14.3 % (11.5-14.0); SEGMENTED NEUTROPHILS % (AUTO) 54.3 % (42-78); TOTAL CELLS COUNTED % (AUTO) 100 %; WHITE BLOOD COUNT 7.1 10^3/uL (4.0-10.5)
[2018-05-10 15:54] LABS: APPEARANCE,URINE CLEAR; BILIRUBIN,URINE NEGATIVE (NEGATIVE); COLOR,URINE YELLOW; GLUCOSE, URINE NEGATIVE (NEGATIVE); KETONES,URINE NEGATIVE (NEGATIVE); LEUKOCYTE ESTERASE,URINE NEGATIVE (NEGATIVE); NITRITE,URINE NEGATIVE (NEGATIVE); PROTEIN,URINE NEGATIVE (NEGATIVE); URINE SPECIFIC GRAVITY 1.015; UROBILINOGEN,URINE NEGATIVE mg/dL (<2.0)
[2018-05-10 16:17] LABS: ALANINE AMINOTRANSFERASE 35 U/L (21-72); ALBUMIN 4.8 g/dL (3.5-5.0); ALKALINE PHOSPHATASE 79 U/L (38-126); ANION GAP 13 (5-19); ASPARTATE AMINO TRANSFERASE 35 U/L (17-59); BILIRUBIN,DIRECT 0.3 mg/dL (0.0-0.4); BILIRUBIN,TOTAL 0.6 mg/dL (0.2-1.3); BLOOD UREA NITROGEN 16 mg/dL (7-20); CARBON DIOXIDE 28 mmol/L (22-30); CHLORIDE 103 mmol/L (98-107); GLUCOSE 72 mg/dL (75-110); POTASSIUM 4.6 mmol/L (3.6-5.0); SODIUM 144.2 mmol/L (137-145); TOTAL PROTEIN 8.5 g/dL (6.3-8.2)
--- NOTE | 2018-05-10 18:46 | ER Document Report ---
ED General - General Chief Complaint: Pain All Over Stated Complaint: BODY PAIN Time Seen by Provider: 05/10/18 14:09 TRAVEL OUTSIDE OF THE [place] IN LAST 30 DAYS: No - HPI Notes: 28-year-old male who complains a black bite and pain all over. Patient was bit the left posterior arm yesterday while sitting on the couch. He came to the emergency department was evaluated, at that time he brought the spider with him which was identified. He complained of pain primarily in the left upper extremity as well as his chest and abdomen. Was given some analgesics and discharged home. He now presents with recurrence of the pain because he was only given "Motrin". Nausea, mild bifrontal headache. Pain is throbbing in his left anterolateral chest. Nonradiating except as described. No other modifying factors, no other associated symptoms, no other provocative or palliative factors. - Related Data Allergies/Adverse Reactions: No Known Allergies Allergy (Verified 05/10/18 13:57) Past Medical History - Social History Smoking Status: Current Some Day Smoker Chew tobacco use (# tins/day): No Frequency of alcohol use: None Drug Abuse: Marijuana Family History: Reviewed & Not Pertinent Patient has suicidal ideation: No Patient has homicidal ideation: No - Past Medical History Cardiac Medical History: Reports: Hx Hypertension - htn Renal/ Medical History: Denies: Hx Peritoneal Dialysis Psychiatric Medical History: Reports: Hx Bipolar Disorder Past Surgical History: Reports: Hx Orthopedic Surgery - spinal surgery Review of Systems - Review of Systems Notes: Review of systems as in the history of present illness, otherwise negative x 10 systems. Physical Exam - Vital signs Vitals: Temp Pulse Resp BP Pulse Ox 97.5 F 61 18 152/86 H 100 05/10/18 14:05 05/10/18 14:05 05/10/18 14:05 05/10/18 14:05 05/10/18 14:05 - Notes Notes: General: Well developed . HEENT: Normocephalic, atraumatic. Pupils equal round reactive to light. No JVD. Chest: No trauma. Respiratory: Good air exchange, normal excursion. Cardiac: Regular rhythm. No murmurs or gallops. Abdomen: Soft, benign. Nondistended. Nontender. Back: No asymmetry or gross abnormality. Motor: Grossly normal power and tone. Neurologic: Alert, nonfocal. Cranial nerves II-12 are intact. Sensation intact. Vascular: Well perfused. Normal peripheral pulses. Skin: No petechiae or purpura. Extremities: Small lesion noted about the posterior mid arm. Approximately 5 cm irregular circular area of blanching Course - Re-evaluation Re-evalutation: 05/10/18 18:44 Well-appearing male with likely mild to moderate black envenomation. No high-risk features at this time. Of note, seen by the physician in triage and received opiate analgesics. He is actually resting comfortably at this point. Case discussed with the on-call poison center specialist who recommended current therapy which will be benzodiazepines, opiates and antiemetics. He will follow-up his primary care physician, return if worsening. Prescriptions are given. - Vital Signs Vital signs: Temp Pulse Resp BP Pulse Ox 97.5 F 61 20 152/86 H 100 05/10/18 14:05 05/10/18 14:05 05/10/18 14:26 05/10/18 14:05 05/10/18 14:05 - Laboratory Result Diagrams: 05/10/18 15:10 05/10/18 15:10 Laboratory results interpreted by me: 05/10/18 05/10/18 05/10/18 15:10 15:10 15:10 RDW 14.3 H Creatinine 1.46 H Est GFR (Non-Af Amer) 58 L Glucose 72 L Total Protein 8.5 H Urine Ascorbic Acid 20 H Discharge - Discharge Clinical Impression: Black spider bite Qualifiers: Encounter type: initial encounter Injury intent: accidental or unintentional Qualified Code(s): T63.311A - Toxic effect of venom of black spider, accidental (unintentional), initial encounter Condition: Good Disposition: HOME, SELF-CARE Instructions: Black Spider Bite ([facility]) Prescriptions: Hydrocodone/Acetaminophen [Vicodin 5-300 mg Tablet] 1 - 2 tab PO ASDIR PRN #15 tab PRN Reason: Lorazepam [Ativan 1 mg Tablet] 1 mg PO Q8 #12 tablet Ondansetron [Zofran Odt 4 mg Tablet] 1 - 2 tab PO Q4H PRN #15 tab.rapdis PRN Reason: For Nausea/Vomiting
[2018-05-10 19:04] VITALS: BP 114/59
== END 2018-05-10 19:04 | disposition home or self-care (01) ==
LOC: ER 13:56
DX: T63.311A Toxic effect of venom of black widow spider, accidental (unintentional), initial encounter (principal); M79.602 Pain in left arm; R07.9 Chest pain, unspecified; R10.9 Unspecified abdominal pain; R51 Headache; R11.0 Nausea; F17.200 Nicotine dependence, unspecified, uncomplicated; F12.10 Cannabis abuse, uncomplicated; I10 Essential (primary) hypertension
CPT/HCPCS: 99283; 36415; 83605; 83735; 85025; 80053; 81001; S0119